=== PATIENT | female | born 1950 | race Caucasian/White ===

== ENCOUNTER 2018-03-18 22:26 | Observation (INO) | payer OTHER ==
[~2018-03-18] VITALS: Ht 167.6 cm; Wt 86.0 kg
[2018-03-18 22:31] VITALS: Ht 167.6 cm; Wt 86.0 kg
[2018-03-18 23:43] LABS: BASOPHIL % 0.4 % (0-2); PLATELET COUNT 249 x10^3mcL (130-400); RED CELL DISTRIBUTION WIDTH 14.1 % (11.5-14.5)
[2018-03-18 23:51] LABS: CALCIUM 8.8 mg/dL (8.5-10.1); CHLORIDE SERUM 105 mmol/L (98-107); CREATININE SERUM 0.7 mg/dL (0.6-1.0); GFR1 > 60 mL/min; GLUCOSE SERUM 101 mg/dL (74-106); SODIUM SERUM 139 mmol/L (136-145)
[2018-03-18 23:55] LABS: ALBUMIN 3.8 g/dL (3.4-5.0); ALKALINE PHOSPHATASE 72 U/L (46-116); ALT/SGPT 20 U/L (14-59); AMYLASE 114 U/L (25-115); AST/SGOT 13 U/L (15-37); BILIRUBIN TOTAL 0.3 mg/dL (0.20-1.00); LIPASE 223 IU/L (73-393); TOTAL PROTEIN, SERUM 7.6 g/dL (6.4-8.2)
[2018-03-18 23:59] LABS: UA SPECIFIC GRAVITY <=1.005 (1.005-1.035); microscopic required? YES; urine erythrocyte TRACE (NEGATIVE)
[2018-03-19 02:28] VITALS: BP 136/71
[2018-03-19 06:03] VITALS: BP 131/64
[2018-03-19 08:41] VITALS: BP 125/68
[2018-03-19 13:50] VITALS: BP 125/68
[2018-03-19 17:09] VITALS: BP 143/76
[2018-03-19 20:53] VITALS: BP 158/78
[2018-03-20 06:15] VITALS: BP 130/68
[2018-03-20] MEDS ORDERED: TRAMADOL HCL50 MG PO (07:55)
[2018-03-20] MEDS ORDERED: IBUPROFEN400 MG PO (07:55)
[2018-03-20 09:01] VITALS: BP 141/69
[2018-03-20 11:09] VITALS: BP 125/68
== END 2018-03-20 14:43 | disposition home or self-care (01) | DRG 392 ==
LOC: ED 22:26 → MU 03-19 01:28
PROVIDERS: Emergency Medicine
DX: K57.90 Diverticulosis of intestine, part unspecified, without perforation or abscess without bleeding (principal); N85.8 Other specified noninflammatory disorders of uterus; K76.9 Liver disease, unspecified; K80.20 Calculus of gallbladder without cholecystitis without obstruction; R16.0 Hepatomegaly, not elsewhere classified; I10 Essential (primary) hypertension; E66.9 Obesity, unspecified
CPT/HCPCS: G0378; J1650; J1885; J2405; J3010; J7030; Q0092